=== PATIENT | female | born 1965 | race Caucasian/White ===

== ENCOUNTER 2019-06-24 05:12 | Day surgery (SDC) | payer OTHER ==
[~2019-06-24 05:12] MED LIST: ATORVASTATIN CA10 MG PO; DIOVAN HCT 320/1 TA2 PO; LOSARTAN-HCTZ1 EAC2 PO; METOPROLOL SUC100 MG PO; NORVAC PO; PERCOCET 5/3251 TAB PO
== END 2019-06-24 13:54 | disposition home or self-care (01) ==
LOC: CIR.AMB 05:12
PROVIDERS: Plastic Surgery
PROC: 0HQV0ZZ Repair Bilateral Breast, Open Approach (ICD-10-PCS; principal; 2019-06-24 07:00)
DX: N64.81 Ptosis of breast (principal); N64.82 Hypoplasia of breast